=== PATIENT | male | born 1955 | race Caucasian/White ===

== ENCOUNTER 2017-08-02 21:23 | Inpatient (IN) | payer MEDICARE ==
[~2017-08-02 21:23] MED LIST: ISOVUE-370 76%-LOCM 1 ML ONE
[2017-08-02 22:02] LABS: #Eosinphils 0.3 thou/uL (0.0-0.7); #Monocytes 0.7 thou/uL (0.11-0.59); #Neutrophils 5.4 thou/uL (1.40-6.50); %Basophils 0.4 % (0.0-1.0); %Eosinophils 3.9 % (0.0-10.0); %Lymphocytes 23.6 % (21.0-51.0); %Monocytes 7.9 % (0.0-10.0); Red Blood Cell (RBC) Count 4.22 mill/uL (4.70-6.10); White Blood Cell (WBC) Count 8.4 thou/uL (4.8-10.8)
[2017-08-02 22:06] LABS: Prothrombin Time 15.5 SEC (12.0-14.7)
[2017-08-02 22:07] LABS: PTT 32.5 SEC (22.9-36.1)
[2017-08-02 22:20] LABS: ALT (SGPT) 53 U/L (8-55); AST (SGOT) 112 U/L (5-34); Alkaline Phosphatase 245 U/L (40-150); Anion Gap 13 mmol/L (10-20); BUN (Urea Nitrogen) 26 mg/dL (8.4-25.7); Bilirubin, Total 0.5 mg/dL (0.2-1.2); Calc. Creatinine Clearance 0 mL/min (70-130); Carbon Dioxide 24 mmol/L (23-31); Chloride 103 mmol/L (98-107); Estimated GFR-MDRD 34; Globulin 4.9 g/dL (2.4-3.5); Protein, Total 8.3 g/dL (5.8-8.1)
[2017-08-02 22:25] LABS: Troponin I Less than 0.010 ng/mL (< 0.028)
--- NOTE | 2017-08-02 23:39 | RAD ---
AP VIEW CHEST 08/02/17 HISTORY: Swelling, dyspnea. AP portable view chest obtained on 08/02/17. COMPARISON: Comparison made to previous exam from 09/28/16. AP view chest demonstrates what appears to be areas of soft tissue density over the right upper lobe . These appear to be several lesions in a linear fashion over the right upper lobe. I cannot determi ne whether these are external to the patient or have developed in the interim in the right upper lob e region. It may be worthwhile to consider repeat chest radiograph in the PA and lateral projections as well as confirming that there are no external lesions to the patient which would give this appea denisa. IMPRESSION: 1. Possible right upper lobe densities versus foreign bodies adjacent to the right upper lobe a nd right upper chest region. 2. Interval development of a small left sided pleural effusion. POS: [facility]
--- NOTE | 2017-08-03 00:28 | CT ---
CONTRAST ENHANCED CT IMAGES OF ABDOMEN AND PELVIS: Oral contrast was not given. HISTORY: Hepatitis C with abdominal pain and lower extremity edema. Contrast-enhanced CT images of the abdomen and pelvis demonstrate two soft tissue lesions seen in th e right lower lobe. The largest diameter measuring 12.3 mm. This may represent a right lower lobe mass including metastatic disease. A small amount of ascites is seen. The liver is heterogeneous with area of hyperdensity concerning for a possible hepatic mass. This h as a diameter of approximately 3.8 cm. Additional areas of heterogeneity also seen in the posterior aspect of the right hepatic lobe concerning for possible metastatic lesions. The spleen is unremar kable. The inferior vena cava is heterogeneous concerning for extensive IVC clot. This appears to extend i nto the anterior aspect of the lower inferior vena cava. Some of this also may be due to inflow and heterogeneity as far as mixing of the returning inferior vena cava blood. Adrenal gland and kidney s are unremarkable. There is an enlarged celiac lymph node, diameter measuring approximately 16.6 x 13.6 mm. Multilevel lumbar degenerative changes seen. Old healed pelvic fracture is seen. IMPRESSION: 1. Right lower lobe pulmonary parenchymal lesion concerning for possible metastatic disease or lung mass. 2. Hyperdense area as well as hypodense areas seen in the liver concerning for metastatic disease. Other possibilities could include a mixture of metastatic disease and primary hepatic neoplasm. 3. Ascites. 4. 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 5. Enlarged celiac lymph node. POS: [facility]
[2017-08-03] MEDS ORDERED: Acetaminophen 325 MG TAB PO PRN (02:29)
[2017-08-03] MEDS ORDERED: Ondansetron HCl/PF 4 MG/2 ML Vial IVP PRN (02:29)
[2017-08-03] MEDS ORDERED: Ondansetron ODT 4 MG TAB SL PRN (02:29)
[2017-08-03] MEDS ORDERED: Sodium Chloride 0.9% 1,000 ML IV SCH (02:30)
[2017-08-03] MEDS: Sodium Chloride 0.9% 1,000 ML IV SCH ×2 (02:56→20:04)
[2017-08-03 03:01] VITALS: BMI 25.8
[2017-08-03 03:46] LABS: #Basophils 0.1 thou/uL (0.0-0.2); #Eosinphils 0.2 thou/uL (0.0-0.7); #Lymphocytes 1.5 thou/uL (1.20-3.40); #Monocytes 0.6 thou/uL (0.11-0.59); #Neutrophils 4.2 thou/uL (1.40-6.50); %Basophils 0.9 % (0.0-1.0); %Eosinophils 3.3 % (0.0-10.0); %Lymphocytes 23.7 % (21.0-51.0); %Monocytes 8.6 % (0.0-10.0); Hematocrit 33.2 % (42.0-52.0); Red Blood Cell (RBC) Count 3.74 mill/uL (4.70-6.10); White Blood Cell (WBC) Count 6.5 thou/uL (4.8-10.8)
--- NOTE | 2017-08-03 04:03 | HP ---
PRIMARY CARE PROVIDER: ANNIE Bethea. CHIEF COMPLAINT: Leg swelling. HISTORY OF PRESENT ILLNESS: Mr. Lugo is a pleasant 62-year-old gentleman who was seen at [facility] on 08/03/2017. He has a history of hepatitis C for the last 30 years. He reports that over the last 2 weeks, he bermudez s had abdominal discomfort. He describes it as a sensation of bloating. He reports decreased appet ite. He does not think that he has lost weight. Over the last 2 days, he has noticed swelling of h is feet, subsequently legs. He therefore came to the emergency room. He reports shortness of breath with exertion. He denies any chest pain. He denies any fevers or ch ills. He denies any nausea or vomiting. REVIEW OF SYSTEMS: The following complete review of systems was negative, unless otherwise mentione d in the HPI or below: Constitutional: Weight loss or gain, sense of well-being, ability to conduct usual activities, exer cise tolerance. Skin/Breast: Rash, itching, changes in hair growth or loss, nail changes, breast lumps, tenderness, swelling, nipple discharge. Eyes: Vision, double vision, tearing, blind spots, pain. ENT/Mouth: Headaches (location, time of onset, duration, precipitating factors), vertigo, lighthead edness, injury. Vision, double vision, tearing, blind spots, pain, nose bleeding, colds, obstruction , discharge, dental difficulties, gingival bleeding, dentures, neck stiffness, pain, tenderness, mas ses in thyroid or other areas. Cardiovascular: Precordial pain, substernal distress, palpitations, syncope, dyspnea on exertion, o rthopnea, nocturnal paroxysmal dyspnea, edema, cyanosis, hypertension, heart murmurs, varicosities, phlebitis, claudication. Respiratory: Pain, shortness of breath, wheezing, stridor, cough, hemoptysis, fever or night sweats . Gastrointestinal: Poor appetite, dysphagia, indigestion, abdominal pain, heartburn, eructation, rubens sea, vomiting, hematemesis, jaundice, constipation, or diarrhea, abnormal stools (heather-colored, boogie y, bloody, greasy, foul smelling), flatulence, hemorrhoids, recent changes in bowel habits. Genitourinary: Urgency, frequency, dysuria, nocturia, hematuria, polyuria, oliguria, unusual (or ch donal in) color of urine, stones, hesitancy, change in size of stream, dribbling, acute retention or incontinence, libido, potency. Musculoskeletal: Pain, swelling, redness or heat of muscles or joints, limitation, of motion, muscu lar weakness, atrophy, cramps. Neurologic/Psychiatric: Convulsions, paralyses, tremor, incoordination, paresthesias, difficulties with memory of speech, sensory or motor disturbances, or muscular coordination (ataxia, tremor), emo tional problems, anxiety, depression, previous psychiatric care, unusual perceptions, hallucinations . Allergy/Immunologic: Skin rash, anemia, bleeding tendency, polydipsia, polyuria, intolerance to hea t or cold. PAST MEDICAL HISTORY: Significant for spinal injury, hepatitis B, hepatitis C. PAST SURGICAL HISTORY: Significant for right leg surgery, lower back surgery. PSYCHIATRIC HISTORY: Significant for depression. SOCIAL HISTORY: The patient denies alcohol use or recreational drug use. He smokes more than half a pack of cigarettes a day. FAMILY HISTORY: His mother from lung cancer. His maternal uncle from lung cancer. His f ather appears to have had a hematologic malignancy and at age 82. ALLERGIES: He has no known drug allergies. CURRENT MEDICATIONS: Include tramadol 50 mg as needed, Lyrica 200 mg 2 times a day, Celexa 20 mg da zuleika, milk thistle 1000 mg daily, tamsulosin 0.4 mg daily. PHYSICAL EXAMINATION: GENERAL: On examination, Mr. Lugo is awake and alert, not in acute distress. VITAL SIGNS: Blood pressure is 127/93, pulse is 82, he is breathing at rate of 18, and saturating 9 6% on room air. He is afebrile. EYES: No scleral icterus. No conjunctival pallor. ENT: Moist mucosal membranes, no oropharyngeal erythema or exudate. NECK: Supple, nontender, normal range of movement, trachea is midline. RESPIRATORY: Accessory muscles of breathing are not active. Chest wall movements are symmetric alejo aterally. LUNGS: Clear to auscultation without wheeze, rhonchi or crepitations. CARDIOVASCULAR: S1 and S2 are heard, regular. Peripheral pulses palpable. No carotid bruit, no pe ricardial rub. ABDOMEN: Distended, nontender, no hepatomegaly, no splenomegaly, bowel sounds heard, I could not ap preciate fluid thrill. NEUROLOGIC: Cranial nerves II through XII intact. Deep tendon reflexes are 2+. PSYCHIATRIC: Normal mood, normal affect, patient is oriented to person, place and time. SKIN: No rashes, patient has a tattoo over the right hand. MUSCULOSKELETAL: Power is 5/5 in all 4 extremities, normal range of movement at all major extremity joints. LYMPHATIC: No cervical lymphadenopathy. LABORATORY DATA AND IMAGING: Mr. Lugo's labs and investigations were reviewed. Laboratory investi gation show decreased sodium of 135, normal potassium, elevated creatinine of 2.01, last known creat inine normal at 0.90 on 06/03/2017, elevated AST of 112, normal ALT, elevated alkaline phosphatase a t 245, normal troponin I, elevated BNP of 165, elevated total protein of 8.3, normal white count, no rmocytic anemia with hemoglobin 12.3 and normal platelet count. INR is 1.2. I reviewed his electro cardiogram, which shows normal sinus rhythm, no ST changes to suggest an acute coronary syndrome. I also reviewed his chest x-ray, which shows right upper lobe densities. He also had a CT scan of th e abdomen and pelvis, which has been interpreted by the radiologist to show a right lower lobe pulmo nary parenchymal lesion, hyperdense as well as hypodense areas in liver concerning for metastatic di sease, ascites, inferior vena caval heterogeneity concerning for IVC clot and an enlarged celiac lym ph node. ASSESSMENT AND PLAN: Mr. Lugo is a pleasant 62-year-old gentleman who was seen at [facility]. His problem list includes: 1. Acute kidney injury: Etiology unclear at this time, could be secondary to hepatitis C or due to another process. We will initiate workup including renal ultrasound, cryoglobulin level, urine yessenia ctrolytes and urine creatinine. We will consult Nephrology Service. We will provide gentle hydrati on, since he also has ascites. 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 Assembler Fitter promotion specialist has bee n contacted by the emergency room physician and has advised against anticoagulation for now. 3. Malignancy: Patient's presentation is concerning for hepatocellular carcinoma with metastasis v ersus lung cancer with metastases. At this point in time, I am not ordering a CT scan of the chest because of his renal insufficiency and since he received intravenous contrast for today's CT scan. Once his kidney function improves, we will obtain CT scan with contrast of the chest. I will also c onsult Oncology to help guide further management. 4. Hyponatremia: Most likely secondary to lung disease. It is mild, likely asymptomatic. We will recheck sodium level. 5. Abnormal liver function test: Could be secondary to liver metastases. We will recheck liver fu nction test. 6. Hepatitis C and B infections: We will await Gastroenterology Service recommendations. 7. Tobacco abuse: Patient has been counseled regarding tobacco cessation. We will start him on ni cotine replacement therapy. Many thanks for allowing me to participate in your patient's care. Please feel free to contact me w ith any questions or concerns. LEVEL OF RISK: High. LEVEL OF COMPLEXITY: High.
[2017-08-03 04:06] LABS: Anion Gap 12 mmol/L (10-20); BUN (Urea Nitrogen) 28 mg/dL (8.4-25.7); Calc. Creatinine Clearance 45 mL/min (70-130); Calcium 8.5 mg/dL (7.8-10.44); Carbon Dioxide 23 mmol/L (23-31); Chloride 105 mmol/L (98-107); Estimated GFR-MDRD 35
[2017-08-03 06:20] LABS: Potassium, Urine 25.2 mmol/L
--- NOTE | 2017-08-03 08:11 | ULT ---
RENAL ULTRASOUND: History: Acute kidney insufficiency. FINDINGS: Right kidney measures 11 cm in length and the left kidney measures 10.5 cm. No hydronephrosis. No ma ss. Cortical echogenicity appears normally preserved. Cortical thinning appears normal. Bladder is d istended and appears unremarkable. IMPRESSION: Unremarkable renal ultrasound. POS: [facility]
[2017-08-03] MEDS ORDERED: FLU VACC QS2017-18 36 mo. & older 0.5 ML SYRINGE IM ONE (09:00)
[2017-08-03] MEDS: Pregabalin 50 MG CAP PO SCH ×2 (09:13→20:03)
[2017-08-03] MEDS: Tamsulosin HCl 0.4 MG CAP PO SCH (09:14)
[2017-08-03] MEDS: traMADol HCl 50 MG TAB PO SCH (09:14)
[2017-08-03] MEDS: MILK THISTLE 1000 MG PO SCH (09:15)
[2017-08-03] MEDS: Nicotine 21 MG PATCH TD SCH (09:17)
--- NOTE | 2017-08-03 11:38 | CON ---
DATE OF CONSULTATION: 08/03/2017 REASON FOR CONSULTATION: Elevated creatinine. HISTORY OF PRESENT ILLNESS: This is a very pleasant 62-year-old gentleman with a history of hepatit is C for the last 30 years, presented to the hospital with a 2 week history of abdominal discomfort, leg swelling. The patient has had no proteinuria. The patient's baseline creatinine was 0.9 in which increased to 2.0 yesterday and 1.9 today. The patient denies headache, numbness, tingli ng or weakness. Renal ultrasound did not show any swollen kidneys. PAST MEDICAL HISTORY: 1. Hepatitis C and hepatitis B. 2. Low back surgery. 3. Anemia. 4. Depression. FAMILY HISTORY: Significant for lung cancer. HOME MEDICATIONS: I did review home medications, list reviewed. ALLERGIES: Reviewed. REVIEW OF SYSTEMS: Fifteen point review of systems was performed and negative except positives note d above. GENERAL: Weakness- HEAD: Headache- NECK: No swelling or lumps. NOSE: No epistaxis or discharge. EYES: No diplopia or pain. RESPIRATORY: Dyspnea- CARDIOVASCULAR: Chest pain- GASTROINTESTINAL: Nausea- /LEARNING ENGINEER: Hematuria- MUSCULOSKELETAL: No joint pain. NEUROPSYCHIATIC SYSTEMS: No suicidal ideation. No ideation. SKIN: Denies any rash or ulcer. CONSTITUTIONAL: No fever or chills. PHYSICAL EXAMINATION: GENERAL: The patient is awake, alert. VITAL SIGNS: Afebrile, pulse 72, breathing at 16, blood pressure 129/89. OBJECTIVE: See above. Awake, alert, in no acute distress. GENERAL APPEARANCE AND MENTAL STATUS: Fair. HEAD/NECK: Normocephalic. Atraumatic. EYES: EOMI. No deformity. EARS: Clear. No ulcers. NOSE: Intact. No lesions. MOUTH: Clear. No discharge. THROAT: Clear. No exudate. LUNGS: Clear. No crackles. CARDIAC: S1, S2. No rub. ABDOMEN: Benign. BS+. GENITALIA/RECTUM: Krueger absent. BACK/EXTREMITIES: Lower extremities have 3+ edema. NEUROLOGICAL: Alert and motor intact. SKIN: Rash- Bruise- LYMPHATICS: Edema- Ulcer- LABORATORY: Creatinine 1.9. ASSESSMENT AND RECOMMENDATIONS: 1. Acute kidney injury with chronic kidney disease, most likely due to decreased effective arterial blood volume versus adrenal vein congestion. I will follow the patient's renal function closely an d agree with hydration. We will consider repeating MRI if indicated. 2. Anemia, stable. 3. Hepatic and pulmonary lesion, likely appears malignancy. 4. Medications based on GFR are appropriate.
--- NOTE | 2017-08-03 16:45 | CON ---
DATE OF CONSULTATION: 08/03/2017 HISTORY OF PRESENT ILLNESS: The patient is a 62-year-old male who was in normal state of health until a few weeks prior to admission when he developed some abdominal pain and bloating. He was having some right flank pain that radiated around to the anterior area. He had no nausea, vomit ing with this pain. He thought the pain may be from his lower back. He subsequently developed swel ling in his lower extremities and sought care in the emergency room. Abdominal and pelvic CT was pe rformed showing a right lower lobe parenchymal lesion concerning for possible metastatic disease, hy perdense area in the liver as well as heterogeneity of the entire right lobe of the liver concerning for neoplasm. He had small amount of ascites and inferior vena caval clot and a large celiac lymph nodes. Chest x-ray showed possible right upper lobe densities versus foreign body adjacent to the right upper lobe and right upper chest region, interval development of a small left pleural effusion . Renal ultrasound was performed and showed no abnormalities. PAST MEDICAL HISTORY: Includes, 1. Hepatitis C for 30 years, untreated. 2. Lower lumbar surgery. HOME MEDICATIONS: Include Celexa 20 mg p.o. at bedtime, milk thistle, Flomax 0.4 mg p.o. daily, tra madol 2 p.o. daily, and Lyrica 200 mg p.o. b.i.d. ALLERGIES: No known allergies. SOCIAL HISTORY: Does smoke. Does not drink alcohol for the last 4 years. FAMILY HISTORY: Negative for GI or liver disease. REVIEW OF SYSTEMS: CONSTITUTIONAL: No fever or chills, no weight loss. EYES: No blurred vision, no double vision. ENT: No sore throat or earaches. CARDIOVASCULAR: No chest pain or palpitations . PULMONARY: No shortness of breath, cough, or wheezing. SKIN: No rashes. GENITOURINARY: No he maturia or dysuria. MUSCULOSKELETAL: No joint pain. NEUROLOGIC: No seizure activity or numbness. PHYSICAL EXAMINATION: GENERAL: Shows well-developed, well-nourished white male in no acute distress. VITAL SIGNS: Temperature 98.3, pulse 83, respiratory rate 16, and blood pressure 122/78. HEENT: Significant for poor dentition. NECK: Supple. CHEST: Clear. CARDIOVASCULAR: Regular rate and rhythm. ABDOMEN: Soft with some upper abdominal fullness. No definitive hepatomegaly is appreciable. RECTAL: Deferred. EXTREMITIES: Show bilateral swelling of the upper and lower extremity. LABORATORY DATA: Shows sodium 135, BUN 26, creatinine 2.01, AST 112, alkaline phosphatase 245, tota l protein 8.3, albumin 3.4, alphafetoprotein of 50,413. PT is 15.5 with an INR of 1.2. CBC shows w raúl blood cell count of 6.5, hemoglobin 10.9, and hematocrit of 33.2. ASSESSMENT: 1. Hepatocellular carcinoma - the patient's CT shows a definitive mass in the right lobe of approxi mately 3 cm; however, most of the right lobe of the liver is heterogeneous and I think it is probabl y represents hepatocellular cancer. The patient also has pulmonary lesions and enlarged lymph nodes consistent with metastatic disease. Reviewing the CT, it also shows that it appears that there is tumor ingrowth into the inferior vena cava. Reviewing prognostic factors shows that he has a fairly poor prognosis. 2. Hepatitis C. 3. Inferior vena cava clot - I suspect some of this represents tumor ingrowth into the inferior faisal a cava. I would not anticoagulate him at this point. RECOMMENDATIONS: Oncology opinion.
--- NOTE | 2017-08-03 19:44 | CON ---
DATE OF CONSULTATION: 08/03/2017 REASON FOR CONSULTATION: Abdominal pain. HISTORY OF PRESENT ILLNESS: The patient is a 62-year-old gentleman who presented to the emergency room with complaints of abdominal discomfort and bloating, started approximately one month prior. He has had a decreased appetite, but no weight loss. He had new bilateral lower extremity swelling, so he presented to the emergency room. He had an abdominal and pelvis CT, which showed a 3.8 cm hepatic mass. There are also areas of heterogeneity seen throughout the right hepatic lobe. There were right lower lobe lesions concerning for metastatic disease. He also had ascites. There was inferior vena cava heterogeneity worrisome for an inferior vena cava clot. His creatinine was mildly elevated on admission. He had a normal bilirubin; however , his AST and ALT were elevated. He was admitted for further evaluation. Dr. Tucker has seen the patient. He was not started on anticoagulation until further workup could be done. He did have AFP drawn which was greater than 50,000, which was diagnostic for primary hepatocellular carcinoma. The patient had a history of untreated hepatitis C for greater than 30 years. We were asked to see the patient regarding treatment options. The patient denies any complaints. He is normally a very active individual. He denies any chest pain or shortness of breath. He admits to smoking half pack a day for over 40 years , but denies any recent hoarseness, or hemoptysis. PAST MEDICAL HISTORY: 1. Untreated hepatitis C. 2. Spinal injury. PAST SURGICAL HISTORY: Back surgery. ALLERGIES: No known drug allergies. HOME MEDICATIONS: 1. Tramadol 50 mg p.r.n. 2. Lyrica daily. 3. Celexa daily. 4. Milk thistle daily. 5. Flomax 0.4 mg daily. FAMILY HISTORY: His mother had lung cancer. She was a smoker. His father had hematological malignancy and in his 80s. SOCIAL HISTORY: , lives with his spouse. Denies any alcohol or illicit drug use. Admits to smoking half pack of cigarettes a day. REVIEW OF SYSTEMS: Constitutional: No fever, chills, night sweats, recent weight loss or gain. Eyes: No blurred or double vision. ENT: No pain, hoarseness, sore throat, or dysphagia. Cardiovascular: No chest pain, palpitations or syncope. Respiratory: No shortness breath, dyspnea on exertion or orthopnea. Gastrointestinal: No nausea, vomiting, diarrhea, constipation. Positive for abdominal pain and bloating. Genitourinary: No dysuria or hematuria. Musculoskeletal: Positive for back and lower extremity pain. Skin: No rash or pruritus. Hematologic: No bleeding, bruising or clotting. Neurologic: Denies weakness, headache, numbness, tingling or seizure activity. Psychiatric: No anxiety or depression. PHYSICAL EXAMINATION: VITAL SIGNS: Temperature is 98.3, pulse is 78, respiratory rate 16, blood pressure is 124/78. He is 95% on room air. GENERAL: Well-developed, well-nourished male in no acute distress. HEENT: Normocephalic, atraumatic. Pupils equal and reactive to light. He has poor dentition. NECK: Supple without JVD or masses. CARDIOVASCULAR: Regular rate and rhythm. LUNGS: Clear to auscultation. ABDOMEN: Firm and distended. His liver is palpable approximately 2 cm below the costophrenic angle. EXTREMITIES: He has 1+ bilateral lower extremity swelling. SKIN: There is no rash. HEMATOLOGIC: No petechia or purpura. NEUROLOGICAL: Nonfocal. PSYCHIATRIC: The patient is alert and oriented and appropriate. PERTINENT LABORATORY DATA AND X-RAYS: Current WBC is 6.5, hemoglobin 10.9, hematocrit 33.2, platelet count 140,000, 64% neutrophils, 24% lymphocytes. PT is 15.5, INR is 1.2, PTT 32.5. Sodium 139, potassium 4.5, chloride 105, CO2 is 23, BUN is 28, creatinine 1.92, calcium 8.5, total bilirubin is 0.5, AST is 112 , ALT is 53, alkaline phosphatase is 245. Troponin is negative. BNP is 165.8, serum total protein is 8.3, albumin 3.4, globulin 4.9. Tumor marker AFP is 50, 413. Radiology per HPI. IMPRESSION: 1. Hepatocellular carcinoma. 2. History of untreated hepatitis C. 3. Tobacco use. DISCUSSION: The patient has a primary hepatocellular carcinoma, likely from his untreated hepatitis C. The patient's liver function is good as is his performance status. He is a candidate for oral sorafenib. He understands that this is a metastatic disease and incurable. Goal would be to control symptoms and prolong life. Complete staging with a CT scan of his chest in the morning if his kidney function has improved. He is in no pain at this time. Per Dr. Meraz and Dr. Tucker's note they would avoid anticoagulation for the clot in his IVC, I agree as the risks do not outweigh the benefits. Case discussed with Dr. Phillips. Thank you for the consult. We will follow him closely. EDIS
[2017-08-03] MEDS ORDERED: Citalopram 20 MG TAB PO SCH (21:00)
[2017-08-04 03:58] LABS: #Eosinphils 0.2 thou/uL (0.0-0.7); #Lymphocytes 1.2 thou/uL (1.20-3.40); #Monocytes 0.5 thou/uL (0.11-0.59); #Neutrophils 3.2 thou/uL (1.40-6.50); %Eosinophils 4.6 % (0.0-10.0); %Lymphocytes 23.4 % (21.0-51.0); %Monocytes 9.9 % (0.0-10.0); Mean Platelet Volume 8.2 fL (7.4-10.4); Red Blood Cell (RBC) Count 3.69 mill/uL (4.70-6.10); White Blood Cell (WBC) Count 5.2 thou/uL (4.8-10.8)
[2017-08-04 04:17] LABS: Anion Gap 9 mmol/L (10-20); BUN (Urea Nitrogen) 28 mg/dL (8.4-25.7); Calc. Creatinine Clearance 55 mL/min (70-130); Calcium 8.6 mg/dL (7.8-10.44); Carbon Dioxide 26 mmol/L (23-31); Chloride 108 mmol/L (98-107); Estimated GFR-MDRD 44
[2017-08-04 04:18] LABS: ALT (SGPT) 40 U/L (8-55); AST (SGOT) 84 U/L (5-34); Alkaline Phosphatase 209 U/L (40-150); Bilirubin, Direct 0.2 mg/dL (0.1-0.3); Bilirubin, Total 0.3 mg/dL (0.2-1.2); Protein, Total 6.5 g/dL (5.8-8.1)
[2017-08-04] MEDS: Tamsulosin HCl 0.4 MG CAP PO SCH (08:29)
[2017-08-04] MEDS: traMADol HCl 50 MG TAB PO SCH (08:29)
[2017-08-04] MEDS: Nicotine 21 MG PATCH TD SCH (08:30)
[2017-08-04] MEDS: Pregabalin 50 MG CAP PO SCH (08:48)
--- NOTE | 2017-08-04 09:18 | PRG ---
DATE OF SERVICE: 08/04/2017 SUBJECTIVE: This is a 62-year-old gentleman being seen for acute kidney injury with improving creat inine. The patient denies any nausea, vomiting or chest pain. PHYSICAL EXAMINATION: GENERAL: Patient is awake, alert. VITAL SIGNS: Afebrile, pulse 80, breathing at 16, blood pressure 134/78. GENERAL APPEARANCE AND MENTAL STATUS: Fair. HEAD/NECK: Normocephalic. Atraumatic. EYES: EOMI. No deformity. EARS: Clear. No ulcers. NOSE: Intact. No lesions. MOUTH: Clear. No discharge. THROAT: Clear. No exudate. LUNGS: Clear. No crackles. CARDIAC: S1, S2. No rub. ABDOMEN: Benign. BS+. GENITALIA/RECTUM: Krueger absent. BACK/EXTREMITIES: Edema 0+ Ulcer- NEUROLOGICAL: Alert and motor intact. SKIN: Rash- Bruise- LYMPHATICS: Edema- Ulcer- LABORATORY DATA: Show hemoglobin 10.8, creatinine 1.5. PLAN: 1. Acute kidney injury, improved. 2. Hypertension, stable. 3. Anemia, stable. No indication for dialysis. Recommend low potassium diet and advised nonsteroi nyla antiinflammatory drugs.
[2017-08-04] MEDS: MILK THISTLE 1000 MG PO SCH (09:38)
--- NOTE | 2017-08-04 11:56 | PDOC.PN ---
- Subjective Encounter Start Date: 08/04/17 Encounter Start Time: 08:30 Pt seen and examined, chart reviewed in its entirety. Pt admitted for BLE edema, abd distention. Workup with CT showed IVC thrombosis and liver mass with probable IVC invasion. a-fetoprotein [id number] indiciatng primary liver HCC. Seen by GI - recommended no anticoagulation. Seen by Oncology - recommended po chemo if no other source. CT scan of chest was ordered for staging, not done at the time of my visit, but done at the time os this note. CT with 5 2+ cm RUL lesion, 1 2cm perihilar and a 3.8x5cm mediastinal mass. onc seeing patient now. Concerned hemay have a second primary malignancy No F/C, no N/V/D/c, no CP, no SOB. 10 point ROS performed and neg for all systems except as above - Objective Vital Signs & Weight: Vital Signs (12 hours) Temp Pulse Resp BP Pulse Ox 08/04/17 08:00 97.8 F 80 18 08/04/17 07:40 97.8 F 80 18 134/78 95 08/04/17 03:22 97.9 F 76 12 139/95 H 95 Weight Weight 180 lb I&O: 08/03/17 08/04/17 08/05/17 06:59 06:59 06:59 Intake Total 680 2400 Output Total 300 1500 Balance 380 900 Result Diagrams: 08/04/17 03:29 08/04/17 03:29 Dx/Plan - Plan * .
[2017-08-04] MEDS ORDERED: Boudreaux's Butt Paste 16% Oin 30 GM TUBE ONE (12:00)
[2017-08-04 12:32] VITALS: TEMP 97.9
[2017-08-04 12:33] VITALS: BP 139/84
--- NOTE | 2017-08-04 12:42 | DIS ---
DATE OF ADMISSION: 08/03/2017 DATE OF DISCHARGE: 08/04/2017 PRIMARY CARE PHYSICIAN: Brant Hammonds. ONCOLOGIST: Trey Phillips M.D. DISCHARGE DIAGNOSES: 1. Hepatocellular carcinoma. 2. Chronic hepatitis C. 3. Inferior vena cava acute thrombosis. 4. Acute kidney injury. 5. Hyponatremia. 6. Chronic tobacco abuse. 7. Lung metastasis. CONSULTATIONS: 1. Oncology, Ms. Jessica Cuba APRN for Dr. Phillips. 2. Gastroenterology, Dr. Arvin Tucker. 3. Nephrology, Dr. Priyank Ospina. PROCEDURES: Chest CT: Revealing multiple metastases to the right upper lobe, left perihilar region, and lymph n ode conglomeration. HISTORY AND PHYSICAL: Mr. Lugo is a pleasant 62-year-old gentleman recently admitted to the [facility] for radicular type right lateral abdominal pain. He was discharged home. Two months later, he developed increasing bilateral lower extremity edema and tightness to his abdom en. He presented back to the emergency department for evaluation where he was found to have a liver mass, inferior vena cava thrombosis, and acute kidney injury. The patient was admitted to the [facility]. HOSPITAL COURSE: The patient was seen and examined by Dr. Kelly, admitted to the hospital. Oncolog y was consulted for the new tumor, GI was consulted because for consideration for anticoagulation du e to proximity of the mass to the inferior vena cava, and renal was consulted for the acute kidney i njury. Oncology requested alpha fetoprotein which was elevated to 54,000, offered the patient a possibility of oral chemotherapy to slow down progression and prolong life, and was started as an outpatient en I saw him. CT scan was ordered for staging that was performed in the morning of 08/04. The patient was seen by Renal, on 08/03 and felt acute kidney injury due to adrenal vein congestion from his IVC blockage, with IV hydration, the creatinine improved overnight 08/03 to 08/04, but certainly not back to his b aseline yet. The patient was seen by GI, who recommended no anticoagulation due to proximity of the mass to the v paulina cava. The reasoning was that if he began to bleed, he would rapidly . Overall, the patient remained stable. Today, CT scan was done that showed five approximately 2 cm masses to the right upper lobe, one to t he left perihilar region, and a 3.8 x 5 cm mass at the mediastinum consistent with lymph node conglo meration. Discussed with Oncology and felt he was stable for discharge with outpatient followup to go over options. PHYSICAL EXAMINATION: The patient was seen and examined on the day of discharge. Discharge plan and disposition were disc ussed with the patient face to face at the bedside. DISCHARGE MEDICATIONS: Resume his home medications. The patient was possibly to be started on oral chemotherapy as an outpatient. HOME MEDICINES: 1. Celexa 20 mg p.o. at bedtime. 2. Milk thistle 1000 mg daily. 3. Lyrica 200 mg p.o. b.i.d. 4. Flomax 0.4 mg daily. 5. Ultram 50 mg tablets 2 p.o. daily. FOLLOWUP APPOINTMENTS: 1. Primary care physician with [facility] within a week. 2. Dr. Phillips on 08/10/2017 at 3:00 p.m. DISCHARGE CONDITION: Stable. DISPOSITION: The patient will be discharged home via private vehicle. INSTRUCTIONS: The patient was ordered to call primary doctor or return to the emergency department for any problems.
--- NOTE | 2017-08-04 12:46 | CT ---
CONTRAST ENHANCED CT IMAGES OF THE CHEST: HISTORY: Patient with hepatic mass. Evaluate for metastatic disease. TECHNIQUE: A contrast enhanced CT of the chest is performed. FINDINGS: The densities seen on the chest radiograph in the right upper lobe region do represent numerous righ t upper lobe soft tissue, popcorn-shaped metastatic lesions. Additional lesions are also seen in th e right lower lobe, as well as at the superior aspect of the left lower lobe, seen on image #21. There is a large right paratracheal mass, measuring 3.8 x 5.5 cm. Additional subcarinal lymphadenop athy is also seen. The patient has a large area of heterogeneous density in the liver. There is also a filling defect seen in the inferior vena cava. This is concerning for possible IVC tumor or clot. Small bilateral pleural effusions are seen. A small amount of ascites is also noted. IMPRESSION: 1. Numerous pulmonary parenchymal metastatic lesions. Right paratracheal and subcarinal lymphadeno janice, as well as heterogeneous mass in the liver, extending into the inferior vena cava. 2. An anterior pericardial metastatic lesion is also present. POS: [facility]
== END 2017-08-04 13:46 | disposition home or self-care (01) | DRG 435 ==
LOC: ERS 21:23 → ONC 08-03 01:15
PROVIDERS: ADMIT Internal Medicine; ATTEND Internal Medicine
DX: C22.0 Liver cell carcinoma (principal); I82.220 Acute embolism and thrombosis of inferior vena cava; N17.9 Acute kidney failure, unspecified; R18.8 Other ascites; E87.1 Hypo-osmolality and hyponatremia; C34.11 Malignant neoplasm of upper lobe, right bronchus or lung; D64.9 Anemia, unspecified; I12.9 Hypertensive chronic kidney disease with stage 1 through stage 4 chronic kidney disease, or unspecified chronic kidney disease; B18.2 Chronic viral hepatitis C; N18.9 Chronic kidney disease, unspecified; F17.210 Nicotine dependence, cigarettes, uncomplicated; F32.9 Major depressive disorder, single episode, unspecified
CPT/HCPCS: 36415; 71010; 71260; 74177; 76770; 80048; 80053; 80076; 82105; 82140; 82436; 82553; 82570; 82595; 83880; 84133; 84300; 84484; 85025; 85610; 85730; 90471; 90682; 90732; 93005; 94760; G0008; G0009; Q2036

== ENCOUNTER 2017-10-01 23:21 | Observation (INO) | payer MEDICARE ==
[2017-10-02 00:44] LABS: Acetaminophen Less than 6.0 mcg/mL (10.0-30.0); Alcohol Less than 10 mg/dL (Less than 10); Salicylate Less than 8.0 mg/dL (15.0-30.0)
[2017-10-02 00:45] LABS: ALT (SGPT) 30 U/L (8-55); AST (SGOT) 50 U/L (5-34); Albumin 3.5 g/dL (3.4-4.8); Alkaline Phosphatase 162 U/L (40-150); Anion Gap 11 mmol/L (10-20); BUN (Urea Nitrogen) 16 mg/dL (8.4-25.7); Bilirubin, Total 0.5 mg/dL (0.2-1.2); Calc. Creatinine Clearance 0 mL/min (70-130); Calcium 9.3 mg/dL (7.8-10.44); Carbon Dioxide 26 mmol/L (23-31); Chloride 103 mmol/L (98-107); Estimated GFR-MDRD 88; Glucose 101 mg/dL (80-115); Potassium 4.1 mmol/L (3.5-5.1); Protein, Total 7.5 g/dL (5.8-8.1); Sodium 136 mmol/L (136-145)
[2017-10-02 02:13] LABS: Bilirubin Negative (Negative); Blood, Urine Negative (Negative); Clarity CLEAR (Clear); Glucose, Urine (Dipstick) Negative (Negative); Leukocyte Negative (Negative); Nitrite Negative (Negative); Protein, Urine (Dipstick) Negative (Neg-Trace); Specific Gravity, Urine 1.019 (1.002-1.036)
[2017-10-02 02:22] LABS: Amphetamine Not Detected (NotDetected); Benzodiazepine Screen Detected (NotDetected); Cocaine Metabolite Screen Not Detected (NotDetected); Medtox Reader # READER 4; Methamphetamine Detected (NotDetected); Opiate Screen Detected (NotDetected); Phencyclidine (PCP) Not Detected (NotDetected); THC/Cannabinoid Screen Detected (NotDetected)
[2017-10-02 02:23] LABS: Barbiturates Screen Not Detected (NotDetected); Medtox Control Line Valid? VALID (VALID); Methadone Not Detected (NotDetected); Oxycodone Screen Not Detected (NotDetected); Tricyclic Screen Not Detected (NotDetected)
[2017-10-02] MEDS ORDERED: Sodium Chloride 0.9% 1,000 ML IV SCH (04:15)
[2017-10-02 04:47] VITALS: BMI 15.7
[2017-10-02] MEDS ORDERED: Ondansetron HCl/PF 4 MG/2 ML Vial IVP PRN (06:25)
[2017-10-02] MEDS ORDERED: Acetaminophen 325 MG TAB PO PRN (06:25)
--- NOTE | 2017-10-02 06:25 | PDOC.EVN ---
Event Note - Event Note Event Note: 750992 H&P Dictated 1. Altered mental status 2. Alcohol usage 3. Metastatic liver ca 4. Drug abuse plan: see orders
[2017-10-02] MEDS ORDERED: Lorazepam 2 MG/ML VIAL SLOW IVP PRN (06:28)
--- NOTE | 2017-10-02 07:24 | HP ---
DATE OF ADMISSION: 10/02/2017 CHIEF COMPLAINT: Altered mental status. HISTORY OF PRESENT ILLNESS: The patient is 62-year-old male with past medical history of metastatic liver carcinoma, hepatitis C, hepatitis B, spinal injury, was brought to the ER because of confusion. History obtained from the ED physician and from the ED note as the patient's family members are not available. The patient also unable to reach them. According to the records the patient was brought here because of confusion. The patient was found confused with a Lysol bottle in the hand, so the patient was brought to the ER. Upon ER arrival, the patient was confused, oriented to person, but later the patient started having agitation and confusion, so patient was given Ativan and admitted to the floor, patient is currently lethargic, so not able to give much history. PAST MEDICAL HISTORY: As per HPI. PAST SURGICAL HISTORY: Prior back surgery. FAMILY HISTORY: Unavailable as no family members are available at this time. SOCIAL HISTORY: Per history, no evidence of alcohol abuse, but per ED physician , the patient was positive for alcohol usage. Positive for smoking. MEDICATIONS: Unavailable at this time. There are no family members available. REVIEW OF SYSTEMS: Not available as the patient is currently lethargic. PHYSICAL EXAMINATION: CONSTITUTIONAL/VITAL SIGNS: At the time of H&P performed temperature 97.3, heart rate 97, respiration 16, blood pressure 150/90. GENERAL: The patient is lethargic, but arousable. HEENT: ENT patent. Oral cavity, poor dentition. NECK: Supple, no JVD. CARDIOVASCULAR: S1, S2 present. Regular rate and rhythm. RESPIRATORY: Diminished breath sounds bilateral. No wheezing, no rhonchi. Breath sounds bilaterally. ABDOMEN: Soft, nontender, no guarding, no organomegaly. MUSCULOSKELETAL: No edema. CRANIAL NERVE SYSTEM: Sleeping but arousable, not following much commands. PSYCHIATRIC: Mood calm. INTEGUMENTARY: Dry skin GENITOURINARY: No Krueger. LABORATORY DATA: At the time of H&P performed; drug screen positive for methamphetamines, benzodiazepines and cannabinoids. BMP showed sodium 136, potassium 4.1, chloride 103, CO2 26, BUN of 16, creatinine 0.87. AST 50, ALT 30 , alkaline phosphatase 162. Serum ammonia level 16, globulin 4. ASSESSMENT AND PLAN: The patient is a 62-year-old male. 1. Altered mental status, possible drug intoxicated, due to drug abuse. Plan to monitor the patient closely. CT head was done, the official report is pending, but no bleed seen. We will go ahead and consult Neuro to evaluate the patient and we will follow the patient. 2. Metastatic liver carcinoma. Monitor closely. Continue current treatment. The patient was seen by Dr. Phillips in the past, but currently he is switching physicians. We will consult Oncology if needed. 3. Pain. P.r.n. pain meds. Monitor his status closely. 4. History of IVC thrombosis. We will go ahead and start patient on Lovenox 40 mg subcu daily. We will monitor the patient closely. We will continue home dose once further records available. 5. Possible alcohol usage. Plan to give thiamine and folic acid and p.r.n. Ativan also. The case was discussed in detail with the patient and the nurse also. MTDD
[2017-10-02] MEDS ORDERED: Multivitamins, Adult 10 ML, Folic Acid 1 MG, Thiamine HCl 100 MG in Dextrose 5 %-0.45 %... IV SCH ×4 (08:00)
--- NOTE | 2017-10-02 08:51 | CT ---
PRELIMINARY REPORT/[facility]/EMERGENCY AFTER HOURS PROCEDURE: EXAM: CT Head Without Intravenous Contrast CLINICAL HISTORY: 62 years old, male; Signs and symptoms; Altered mental status/memory loss; Confusion or disorientatio n; Patient HX: AMS TECHNIQUE: Axial computed tomography images of the head/brain without intravenous contrast. COMPARISON: No relevant prior studies available. FINDINGS: Brain: No acute findings. No hemorrhage. No significant white matter disease. No edema. Ventricles: No acute findings. No ventriculomegaly. Bones/joints: No acute findings. No acute fracture. Soft tissues: No acute findings. Sinuses: Unremarkable as visualized. No acute sinusitis. Mastoid air cells: Unremarkable as visualized. No mastoid effusion. IMPRESSION: No acute intracranial pathology. Thank you for allowing us to participate in the care of your patient. Dictated and Authenticated by: Cecy Lopez MD 10/02/2017 1:18 AM Central Time ([place] & [place]) FINAL REPORT CT BRAIN: Date: 10/02/17 HISTORY: Altered mental status. FINDINGS: Noncontrast enhanced CT images of brain obtained. The brain is unremarkable. No evidence of intracran ial masses, hemorrhages, strokes, or contusions seen. Ventricles are of normal size. IMPRESSION: Normal CT brain. I agree with the preliminary report given by Nate. POS: [facility]
--- NOTE | 2017-10-02 10:01 | PDOC.PN ---
- Subjective Encounter Start Date: 10/02/17 Encounter Start Time: 09:59 Subjective: alert, admits to THC, meth - Objective MAR Reviewed: Yes Vital Signs & Weight: Vital Signs (12 hours) Temp Pulse Resp Pulse Ox 10/02/17 04:10 97.3 F L 97 16 97 I&O: 10/01/17 10/02/17 10/03/17 06:59 06:59 06:59 Intake Total 350 Balance 350 Result Diagrams: 10/02/17 00:14 Additional Labs: Accuchecks 10/02/17 05:50 POC Glucose 97 Phys Exam - Physical Examination Constitutional: NAD Neck: no JVD Respiratory: clear to auscultation bilateral Cardiovascular: RRR, no significant murmur Gastrointestinal: soft, positive bowel sounds Musculoskeletal: no edema Dx/Plan (1) Mild tetrahydrocannabinol (THC) abuse Code(s): F12.10 - CANNABIS ABUSE, UNCOMPLICATED Status: Acute (2) Methamphetamine abuse Code(s): F15.10 - OTHER STIMULANT ABUSE, UNCOMPLICATED Status: Acute (3) Altered mental state Code(s): R41.82 - ALTERED MENTAL STATUS, UNSPECIFIED Status: Acute Qualifiers: Altered mental status type: unspecified Qualified Code(s): R41.82 - Altered mental status, unspecified (4) Acute thrombosis of inferior vena cava Code(s): I82.220 - ACUTE EMBOLISM AND THROMBOSIS OF INFERIOR VENA CAVA Status : Chronic (5) Chronic active hepatitis C Code(s): K73.2 - CHRONIC ACTIVE HEPATITIS, NOT ELSEWHERE CLASSIFIED Status: Chronic (6) Hepatocellular carcinoma Code(s): C22.0 - LIVER CELL CARCINOMA Status: Chronic (7) Lung metastasis Code(s): C78.00 - SECONDARY MALIGNANT NEOPLASM OF UNSPECIFIED LUNG Status: Chronic Qualifiers: Laterality: unspecified laterality Qualified Code(s): C78.00 - Secondary malignant neoplasm of unspecified lung - Plan AMS resolved, monitor , if no change to the worse- home * .
[2017-10-02] MEDS: Enoxaparin Sodium 40 MG/0.4 ML SYRINGE SC SCH ×2 (10:39→10:52)
[2017-10-02 16:33] VITALS: BP 126/82; TEMP 98.2
[2017-10-02] MEDS ORDERED: Tamsulosin HCl 0.4 MG CAP PO SCH (21:00)
[2017-10-02] MEDS ORDERED: Citalopram 20 MG TAB PO SCH (21:00)
--- NOTE | 2017-10-02 22:00 | DIS ---
DATE OF ADMISSION: 10/02/2017 DATE OF DISCHARGE: 10/02/2017 TRANSFER OF CARE NOTE DISCHARGE DISPOSITION: Home. FINAL DIAGNOSES: Altered mental status, resolved; THC abuse; methamphetamine abuse; chronic hepatiti s C; hepatic insufficiency; hepatocellular carcinoma. DISCHARGE MEDICATIONS: Same as his home medicines, tramadol 2 tablets daily, Flomax 0.4 mg a day, Ly mindi 200 mg twice a day, Celexa 20 mg at bedtime. ALLERGIES: No known drug allergies. PENDING AT THE TIME OF DISCHARGE: Nothing. CODE STATUS: FULL. HOSPITAL COURSE: The [facility] the [facility]. He was brought with altered mental status, no available histori ans. His drug screen was positive for opiates which he is not on, THC and benzodiazepines, which he is not on and methamphetamine. His chemistries were unremarkable except for an AST of 50, ALT of 30 and a total bilirubin of 0.5. His ammonia was actually low at 16. He is currently awake, alert, and desirous of going home, oriented x3 adequate knowledge. Vital signs are stable. Discussion of illi cit drugs was had. He is being discharged home. CONSULTATIONS: None. PROCEDURES: None. He has been asked to follow up with his PCP in 7 days.
== END 2017-10-02 18:10 | disposition home or self-care (01) ==
LOC: ERS 23:21 → SURG A 10-02 01:30
PROVIDERS: ADMIT Internal Medicine; ATTEND Internal Medicine
DX: R41.82 Altered mental status, unspecified (principal); F12.10 Cannabis abuse, uncomplicated; F15.10 Other stimulant abuse, uncomplicated; B18.2 Chronic viral hepatitis C; K72.90 Hepatic failure, unspecified without coma; C22.0 Liver cell carcinoma; R52 Pain, unspecified; I82.220 Acute embolism and thrombosis of inferior vena cava; C78.00 Secondary malignant neoplasm of unspecified lung; F17.200 Nicotine dependence, unspecified, uncomplicated; Z79.891 Long term (current) use of opiate analgesic; Z79.899 Other long term (current) drug therapy; Z98.890 Other specified postprocedural states; Z86.19 Personal history of other infectious and parasitic diseases
CPT/HCPCS: 70450; 80053; 80306; 80307; 81003; 82140; 82962; 84443; 96360; 96361 ×2; 96365; 96366; 99285; G0378; 36415; 36416; J1650; J3370; J3411; J7042

== ENCOUNTER 2018-01-05 21:07 | Emergency (ER) | payer MEDICARE ==
[2018-01-05 21:57] LABS: #Eosinphils 0.2 thou/uL (0.0-0.7); #Lymphocytes 1.3 thou/uL (1.20-3.40); #Monocytes 0.8 thou/uL (0.11-0.59); #Neutrophils 6.3 thou/uL (1.40-6.50); %Basophils 0.3 % (0.0-1.0); %Eosinophils 2.1 % (0.0-10.0); %Lymphocytes 15.5 % (21.0-51.0); %Monocytes 9.4 % (0.0-10.0); %Neutrophils 72.8 % (42.0-75.0); Hemoglobin 10.8 g/dL (14.0-18.0); Mean Corpuscular HGB CONC 32.8 g/dL (32.0-36.0); Mean Corpuscular Hemoglobin 29.8 pg (27.0-31.0); Mean Corpuscular Volume 90.7 fl (80.0-94.0); Mean Platelet Volume 7.7 fL (7.4-10.4); Platelet Count 230 thou/uL (130-400); RBC Distribution Width 16.3 % (11.5-14.5); Red Blood Cell (RBC) Count 3.64 mill/uL (4.70-6.10); White Blood Cell (WBC) Count 8.6 thou/uL (4.8-10.8)
[2018-01-05] MEDS ORDERED: Morphine 4 MG/ML VIAL ONE (21:59)
[2018-01-05] MEDS ORDERED: Ondansetron HCl/PF 4 MG/2 ML Vial ONE (21:59)
[2018-01-05] MEDS ORDERED: Loperamide HCl 2 MG CAP ONE ×2 (21:59→22:06)
[2018-01-05 22:03] LABS: INR-International Normal Ratio 1.2; PTT 33.1 SEC (22.9-36.1)
[2018-01-05 22:04] LABS: D-Dimer Test 2.54 *mcg/mL (0.27-0.43)
[2018-01-05 22:20] LABS: ALT (SGPT) 43 U/L (8-55); AST (SGOT) 110 U/L (5-34); Albumin 3.1 g/dL (3.4-4.8); Alkaline Phosphatase 322 U/L (40-150); Anion Gap 12 mmol/L (10-20); BUN (Urea Nitrogen) 26 mg/dL (8.4-25.7); Bilirubin, Total 0.7 mg/dL (0.2-1.2); Calc. Creatinine Clearance 0 mL/min (70-130); Calcium 8.7 mg/dL (7.8-10.44); Carbon Dioxide 26 mmol/L (23-31); Chloride 101 mmol/L (98-107); Estimated GFR-MDRD 45; Globulin 4.8 g/dL (2.4-3.5); Glucose 126 mg/dL (80-115); Lipase 22 U/L (8-78); Magnesium 2.3 mg/dL (1.6-2.6); Potassium 5.1 mmol/L (3.5-5.1); Protein, Total 7.9 g/dL (5.8-8.1); Sodium 134 mmol/L (136-145)
[2018-01-05 22:23] LABS: CKMB 0.9 ng/mL (0-6.6); Troponin I Less than 0.010 ng/mL (< 0.028)
--- NOTE | 2018-01-05 23:08 | CT ---
CTA OF THE THORAX UTILIZING IV CONTRAST AND 3D REFORMATTED IMAGIN01/05/18 COMPARISON: Prior exam dated 08/04/17. FINDINGS: No central or segmental pulmonary embolus is evident. There are enlarging pulmonary masses seen withi n both lungs. One of the largest is seen within the right lung apex measuring 4.1 cm on image 20 of s eries 2 whereas it measured 1.9 cm on prior exam. There is an enlarged right paratracheal lymph node that measures 6.3 x 4.4 cm where it previously measured 5.4 x 3.8 cm. There are enlarging pericardial lymph nodes. There is a large heterogeneous mass within the right hepatic lobe that extends into the right IVC seen on the comparison examination. This is better detailed on the subsequently performed CT abdomen and pelvis. Please see this dictation for further details. No definite acute osseous abnor mality is evident. IMPRESSION: 1. No central or segmental pulmonary embolus. 2. There is worsening metastatic disease to the lungs with worsening mediastinal lymphadenopathy as well as pericardial lymphadenopathy. 3. Large heterogeneous mass within the right hepatic lobe with tumor thrombus extending into the right IVC is stable to the comparison examination in 08/04/17. POS: [facility]
--- NOTE | 2018-01-05 23:29 | CT ---
CT OF THE ABDOMEN AND PELVIS WITH IV CONTRAST 01/05/18 INDICATION: History of diarrhea all day with burning sensation in the abdomen with history of liver cancer. COMPARISON: Prior exam dated 08/02/17. FINDINGS: There is worsening pulmonary metastatic disease. The large heterogeneous mass in the right hepatic lobe measures approximately 12.2 x 12.5 cm with inv asion of the right hepatic vein and extension into the IVC. The extent of the IVC tumor thrombus appe ars similar extending up to the level of the cavoatrial junction. The tumor essentially occludes the lumen of the IVC below the level of the liver. There is some opacification of the IVC from contrast f rom the renal veins. There is lack of contrast in the IVC below the level of the kidneys. There is enlarged paracaval lymph node measuring up to 4.3 cm where previously it measured 1.9 cm. Th ere are numerous enlarged lymph nodes within the upper abdomen consistent with metastatic lymphadenop athy. One of the larger lymph nodes is seen measuring 2.4 cm whereas it measured 1.4 cm on the prior exam in the peripancreatic region on image 28 of series 3. No free fluid is evident. There is some fluid density see within the colon which can be seen in diarrheal states. There is a n ormal appendix in the right lower quadrant. There is scattered degenerative and osteoarthritic martinez e. IMPRESSION: 1. Large heterogeneous mass with IVC extension causing thrombus within the IVC. The extent of th e thrombus appears slightly more pronounced than on the prior exam. 2. Worsening metastatic lymphadenopathy of the upper abdomen. 3. Worsening pulmonary metastatic disease. 4. Fluid density in the colon can be seen with diarrheal states. 5. Healed fracture deformity involving the pelvis. No acute osseous abnormality is evident. POS: [facility]
[2018-01-06] MEDS ORDERED: Furosemide 40 MG/4 ML VIAL ONE (01:26)
== END 2018-01-06 01:34 | disposition home or self-care (01) ==
LOC: ERS 21:07
DX: C22.0 Liver cell carcinoma (principal); C78.00 Secondary malignant neoplasm of unspecified lung; F32.9 Major depressive disorder, single episode, unspecified; F17.210 Nicotine dependence, cigarettes, uncomplicated; Z79.899 Other long term (current) drug therapy
CPT/HCPCS: 36415; 71275; 74177; 80053; 82553; 83690; 83735; 83880; 84484; 85025; 85379; 85610; 85730; 96374; 96375; 99406; J1940; J2270; J2405

== ENCOUNTER 2018-03-22 08:48 | Outpatient (CLI) | payer MEDICARE, OTHER ==
[2018-03-22] MEDS ORDERED: Iopamidol 370 76% 100 ML VIAL ONE (11:21)
--- NOTE | 2018-03-22 11:35 | CT ---
CT OF CHEST AND ABDOMEN AND PELVIS PERFORMED WITH INTRAVENOUS CONTRAST ENHANCEMENT: HISTORY: Hepatocellular carcinoma with metastases. COMPARISON: A CT angio of the chest performed 01/05/[address] of the abdomen and pelvis also performed 01/05/18. FINDINGS: Multiple right upper lobe pulmonary masses are identified. The lesion which is in the apex of the david ng has decreased in size measuring 2.1 cm on the current study as compared to 3.2 cm on the prior vladimir dy. A 2nd lesion, which is located more anteriorly as seen on axial image 12 measures 3.3 cm as comp ared to 3.7 cm on the prior exam and the 2 other lobulated densities seen on axial image 16 have also improved slightly in size measuring 2.2 cm and 2.9 cm on the current study as compared to 2.6 and 3. 2 cm on the prior exam. The massive right paratracheal adenopathy has also slightly diminished, alth ough the measurements are minimally different measuring 4.1 x 6.3 cm as compared to 4.4 x 6.4 cm. Th e enlarged node in the azygous region is not appreciably changes as seen on axial image 29 measuring 2.8 cm on the current study. Subcarinal adenopathy is also felt to not be significantly changed. There is a lobulated nodule seen in the superior segment of the left lower lobe. It is difficult to compare measurements, but abuts the fissure. It may be minimally improved as compared to the prior s tudy. It is difficult to obtain comparable measurements and there may be minimal improvement but not significant change. I do not see any new nodules. CT OF ABDOMEN PERFORMED WITH INTRAVENOUS CONTRAST ENHANCEMENT: The liver mass to near the cavoatrial junction. The spleen shows no focal lesions. Pancreas is unre markable. The gallbladder is not distended. Right and left adrenal glands are normal in appearance. Right and left kidneys are normal in size an d not obstructed. The upper abdominal adenopathy is similar. A peripancreatic node located posterio r to the body of the pancreas on image 25 has short axis measurement at 2.5 cm, which is similar to t he previous exam and the large mass, which is located posterior to the IVC, measures approximately 4. 9 as compared 4.3 cm in dimension but on coronal images I do not appreciate any true interval change. CT OF PELVIS PERFORMED WITH CONTRAST ENHANCEMENT: The bladder is not distended. There is a suggestion of bladder thickening. Deformity to the pelvis appears to be related to old trauma. No lytic or blastic bony changes seen. IMPRESSION: 1. Slight interval improvement to the size of some of the right upper lobe pulmonary nodules with li ttle significant change in the mediastinal adenopathy. The lobulated pulmonary nodule in the superio r segment of the left lower lobe is stable. 2. Unchanged size to the right lobe liver mass with inferior vena cava tumor invasion. Also, overal l stable appearance to the upper abdominal adenopathy. POS: [facility]
== END 2018-03-22 08:49 | disposition home or self-care (01) ==
LOC: CT 08:48
PROVIDERS: ATTEND Internal Medicine Hematology & Oncology
DX: C22.0 Liver cell carcinoma (principal); R91.8 Other nonspecific abnormal finding of lung field; R59.0 Localized enlarged lymph nodes; R16.0 Hepatomegaly, not elsewhere classified
CPT/HCPCS: 71260; 74177; 82565

== ENCOUNTER 2018-03-24 13:18 | Emergency (ER) | payer MEDICARE ==
[2018-03-24 14:10] LABS: #Eosinphils 0.1 thou/uL (0.0-0.7); #Monocytes 0.9 thou/uL (0.11-0.59); #Neutrophils 11.7 thou/uL (1.40-6.50); %Basophils 0.3 % (0.0-1.0); %Lymphocytes 7.4 % (21.0-51.0); %Monocytes 6.7 % (0.0-10.0); %Neutrophils 84.6 % (42.0-75.0); Mean Corpuscular HGB CONC 33.5 g/dL (32.0-36.0); Mean Corpuscular Hemoglobin 29.3 pg (27.0-31.0); Mean Corpuscular Volume 87.6 fl (80.0-94.0); Mean Platelet Volume 9.2 fL (7.4-10.4); Platelet Count 125 thou/uL (130-400); Red Blood Cell (RBC) Count 4.42 mill/uL (4.70-6.10); White Blood Cell (WBC) Count 13.8 thou/uL (4.8-10.8)
[2018-03-24 14:36] LABS: ALT (SGPT) 43 U/L (8-55); AST (SGOT) 92 U/L (5-34); Albumin 3.6 g/dL (3.4-4.8); Alkaline Phosphatase 260 U/L (40-150); Anion Gap 16 mmol/L (10-20); BUN (Urea Nitrogen) 23 mg/dL (8.4-25.7); Bilirubin, Total 0.6 mg/dL (0.2-1.2); Calc. Creatinine Clearance 0 mL/min (70-130); Carbon Dioxide 16 mmol/L (23-31); Chloride 104 mmol/L (98-107); Estimated GFR-MDRD 53; Glucose 109 mg/dL (80-115); Potassium 5.3 mmol/L (3.5-5.1); Protein, Total 8.6 g/dL (5.8-8.1); Sodium 131 mmol/L (136-145)
[2018-03-24 15:26] LABS: Bilirubin Negative (Negative); Blood, Urine Negative (Negative); Clarity CLEAR (Clear); Glucose, Urine (Dipstick) Negative (Negative); Leukocyte Negative (Negative); Nitrite Negative (Negative); Protein, Urine (Dipstick) Negative (Neg-Trace); Specific Gravity, Urine 1.016 (1.002-1.036); Urobilinogen 0.2 mg/dL (0.2-1.0); pH, Urine 5.5 (5.0-9.0)
== END 2018-03-24 16:21 | disposition home or self-care (01) ==
LOC: ERS 13:18
DX: R50.9 Fever, unspecified (principal); F32.9 Major depressive disorder, single episode, unspecified; F17.210 Nicotine dependence, cigarettes, uncomplicated; Z79.899 Other long term (current) drug therapy
CPT/HCPCS: 36415; 80053; 81003; 85025; 87040; 99283

== ENCOUNTER 2018-06-29 08:57 | Outpatient (CLI) | payer MEDICARE ==
--- NOTE | 2018-06-29 11:28 | CT ---
CONTRAST ENHANCED CT IMAGES OF CHST AND ABDOMEN AND PELVIS: HISTORY: Patient with a history of liver cancer with metastases to lung on chemotherapy. COMPARISON: Comparison is made to a previous CT from 03/22/18. FINDINGS: Contrast-enhanced CT images of the chest, abdomen, and pelvis were obtained. Images demonstrate extensive right upper lobe metastatic lesions. The largest of these right upper l obe metastatic lesions previously measured approximately 3.3 cm in its greatest dimension. This has not significantly changed since the previous exam. Other right upper lobe lesions are slightly small er while some are slightly larger. One in the anterior aspect of the right upper lobe previously paty sured approximately 2.2 cm and now measures approximately 2.6 cm suggesting slight increase in size. There is a large right paratracheal mass previously measuring approximately 4.1 x 6.3 cm and now mini morales changed in size measuring 4.0 x 6.5 cm. The right hilar lymph node is of same size measuring 2 .7 cm. Subcarinal lymphadenopathy is also present, unchanged in size. There is also a left lower lobe superior segment mass measuring 1.3 cm not significantly changed in s ize. Extensive right hepatic lobe and caudate lobe masses seen. These appear to not to have significantly changed in size. Portions of the liver appear to be somewhat nodular in appearance. The spleen is unremarkable. There is a large right retrocaval mass which appears to have increased in size. Previously, this les ion measured approximately 4.0 x 4.9 cm now having increased in size measuring 4.5 x 7.0 cm. There is also a moderate-sized retropancreatic mass measuring approximately 3.7 x 2.7 cm. This appea rs to have a separate tissue plane in the pancreatic body. This may also represent another enlarged lymph node. Anterior abdominal wall vascular collaterals are also present. The inferior vena cava appears to hav e some compression due to the retrocaval mass. Some mildly enlarged inguinal lymph nodes are also seen. IMPRESSION: Large right hepatic lobe mass with some right lung metastatic lesions minimally smaller while others are minimally larger. The retrocaval mass has significantly increased in size. No other significant interval change is seen. POS: [facility]
[2018-06-29] MEDS ORDERED: Iopamidol 370 76% 100 ML VIAL ONE (12:03)
== END 2018-06-29 08:58 | disposition home or self-care (01) ==
LOC: BICCT 08:57
PROVIDERS: ATTEND Internal Medicine Hematology & Oncology
DX: C22.0 Liver cell carcinoma (principal); C34.91 Malignant neoplasm of unspecified part of right bronchus or lung; R16.0 Hepatomegaly, not elsewhere classified; N28.89 Other specified disorders of kidney and ureter
CPT/HCPCS: 71260; 74177

== ENCOUNTER 2018-09-13 08:48 | Outpatient (CLI) | payer MEDICARE ==
[2018-09-13] MEDS ORDERED: ISOVUE-370 76%-LOCM 1 ML ONE (10:48)
--- NOTE | 2018-09-13 11:28 | CT ---
CHEST CT WITH CONTRAST ABDOMEN CT WITH CONTRAST PELVIS CT WITH CONTRAST: Date: 09/13/18 HISTORY: Liver cell cancer, hepatoma. Lung metastasis. Increasing pain since last scan. Patient is currently u ndergoing chemotherapy. COMPARISON: 03/12/18, 06/29/18. FINDINGS: CHEST CT: Redemonstration of extensive metastases involving the lung parenchyma, as well as the mediastinum. Th ere is an enlarged metastatic deposit, right paratracheal in location, currently measuring 3.9 x 6.6 cm (previously measuring 6.5 x 4.0 cm). Enlarged right hilar lymph node/mass measuring 2.9 x 3.2 cm (previously measuring 2.7 x 3.2 cm. Multiple lung parenchymal nodules. The overall degree and distrib ution has not changed. The largest nodule in the left lung abuts the major fissure and measures 1.5 c m (previously measuring 1.3 cm). Largest nodule in the right lung is at the apex, measuring 3.3 x 3.1 cm (previously measuring 3.3 x 3.1 cm). ABDOMEN CT: There is extensive malignancy involving the liver. There is a hyperdense focus in the anterior segmen t of the right hepatic lobe measuring 4.8 x 4.4 cm (previously measuring 4.1 x 4.3 cm). Irregularity of the caudate lobe of the liver is also noted. Left hepatic lobe is unremarkable. There is tumor thr ombus extending into the inferior vena cava down to the level of the renal veins. There is no evidenc e of extension of thrombus into the right renal vein. There is a small extension of tumor thrombus in the left renal vein. The spleen, pancreas, and adrenal glands are unremarkable. There is an enlarged retroperitoneal lymph node adjacent to the tail and body of the pancreas measuri ng 2.7 x 4.4 cm (previously measuring 2.4 x 3.6 cm). There is a bulky lymph node posterior to the inf erior vena cava measuring 5.5 x 5.6 cm (previously measuring 5.5 x 4.3 cm). Symmetric enhancement of the kidneys. No evidence of abnormality with regards to the alimentary canal. Extensive varicosities are noted in the anterior and lateral abdominal wall. Symmetric attenuation of the psoas muscles. CT PELVIS: No mass, lymphadenopathy, free air, or free fluid. No lytic or blastic lesions in the osseous structures. IMPRESSION: 1. Redemonstration of multifocal metastatic deposits involving the thorax and abdomen as described a selina. The majority of these lesions are unchanged. There is a lesion in the left lung has increased i n size. 2. Involvement of the liver and abdominal lymphadenopathy is relatively stable. There may be slight progression in terms of the size of the lymph node posterior to the inferior vena cava. 3. Stable involvement of the liver by primary tumor as described above. POS: [facility]
== END 2018-09-13 08:49 | disposition home or self-care (01) ==
LOC: BICCT 08:48
PROVIDERS: ATTEND Internal Medicine Hematology & Oncology
DX: C22.0 Liver cell carcinoma (principal); R59.0 Localized enlarged lymph nodes; R91.1 Solitary pulmonary nodule
CPT/HCPCS: 71260; 74177; 82565

== ENCOUNTER 2019-03-11 09:23 | Outpatient (CLI) | payer MEDICARE ==
--- NOTE | 2019-03-11 10:29 | CT ---
EXAM: CT of the chest with contrast CT of the abdomen and pelvis with contrast HISTORY: Liver cancer with lung metastases COMPARISON: 09/13/2018 TECHNIQUE: 1. Multiple contiguous axial images were obtained in a CT the chest with contrast. Coronal reformats were performed. 2. Multiple contiguous axial images were obtained and a CT of the abdomen and pelvis with contrast. C oronal reformats were performed. FINDINGS: CT CHEST: HEART: Normal in size without focal cardiac abnormality MEDIASTINUM: There are worsening enlarged mediastinal and hilar lymph nodes. The largest node is seen in the superior mediastinum measuring 7.6 cm in size. LUNGS: Multiple nodules are seen in the right upper lobe. Majority of these nodules have slightly inc reased in size with the largest nodule measuring 3.4 cm in size. However, one of the nodules has slightly decreased in size. There is a nodule in the left lower lobe which has significantly decrease d in size on image 22 of 61 and now measuring approximately 6 mm in size. A new pulmonary nodule is seen in the right lower lobe on image 35 of 61 measuring 6 mm in size. PLEURAL SPACE: No pneumothorax or pleural effusion. CHEST WALL SOFT TISSUES: Multiple varices seen in the chest and abdominal wall CT ABDOMEN/PELVIS: ABDOMEN: LIVER: There is a large mass occupying majority of the right lobe of the liver. This involves the inf erior vena cava and likely as a cause for the varices seen in the abdominal wall. The previously seen hyperdense focus now measures 5.4 cm in size but there is heterogeneous appearance of the rest o f the right lobe of the liver. BILE DUCTS: Normal caliber. GALLBLADDER: No calcified gallstones. Normal caliber wall. PANCREAS: There is a mass along the posterior border of the pancreas measuring 5.2 cm in size, which has enlarged. SPLEEN: within normal limits. ADRENALS: within normal limits. KIDNEYS: within normal limits. PELVIS: REPRODUCTIVE ORGANS: No pelvic masses. URETERS: within normal limits. BLADDER: within normal limits. PERITONEUM: No ascites or free air, no fluid collection. BOWEL: Normal caliber. MESENTERY AND RETROPERITONEUM: An enlarging right retroperitoneal mass measures 8.5 cm in size. VESSELS: Atherosclerotic calcifications. ABDOMINAL WALL: Multiple varices OSSEOUS STRUCTURES: Remote healed pelvic fractures. Degenerative changes and postsurgical changes in the spine. No suspicious osseous lesions identified. IMPRESSION: Worsening of hepatic primary and metastatic disease in the chest and abdomen, although the response i s mixed.
[2019-03-11] MEDS ORDERED: ISOVUE-370 76%-LOCM 1 ML ONE (11:04)
== END 2019-03-11 09:24 | disposition home or self-care (01) ==
LOC: BICCT 09:23
PROVIDERS: ATTEND Internal Medicine Hematology & Oncology
DX: C78.00 Secondary malignant neoplasm of unspecified lung (principal); C22.0 Liver cell carcinoma; C79.89 Secondary malignant neoplasm of other specified sites
CPT/HCPCS: 71260; 74177; Q9966

== ENCOUNTER 2019-07-11 14:51 | Emergency (ER) | payer MEDICARE ==
[2019-07-11 16:10] LABS: #Lymphocytes 0.9 thou/uL (1.20-3.40); #Monocytes 0.4 thou/uL (0.11-0.59); #Neutrophils 3.8 thou/uL (1.40-6.50); %Basophils 0.5 % (0.0-1.0); %Eosinophils 0.9 % (0.0-10.0); %Lymphocytes 17.9 % (21.0-51.0); %Neutrophils 72.7 % (42.0-75.0); Hemoglobin 14.5 g/dL (14.0-18.0); Mean Corpuscular HGB CONC 33.9 g/dL (32.0-36.0); Mean Corpuscular Hemoglobin 29.1 pg (27.0-31.0); Mean Corpuscular Volume 85.7 fL (78.0-98.0); Mean Platelet Volume 10.3 fL (7.4-10.4); Platelet Count 106 thou/uL (130-400); RBC Distribution Width 18.2 % (11.5-14.5); Red Blood Cell (RBC) Count 4.99 mill/uL (4.70-6.10); White Blood Cell (WBC) Count 5.2 thou/uL (4.8-10.8)
[2019-07-11 16:19] LABS: MDiff Complete? YES; Platelet Morphology Comment Appears Decreased; Polychromasia SLIGHT = 2-3 cells (100X) (0-2/hpf)
[2019-07-11 16:20] LABS: ALT (SGPT) 64 U/L (8-55); AST (SGOT) 118 U/L (5-34); Albumin 2.8 g/dL (3.4-4.8); Alkaline Phosphatase 283 U/L (40-110); Anion Gap 9 mmol/L (10-20); BUN (Urea Nitrogen) 21 mg/dL (8.4-25.7); Calc. Creatinine Clearance 0 mL/min (70-130); Calcium 8.4 mg/dL (7.8-10.44); Carbon Dioxide 26 mmol/L (23-31); Chloride 102 mmol/L (98-107); Estimated GFR-MDRD 77; Globulin 5.2 g/dL (2.4-3.5); Glucose 121 mg/dL (80-115); Lipase 32 U/L (8-78); Potassium 4.2 mmol/L (3.5-5.1); Sodium 133 mmol/L (136-145)
--- NOTE | 2019-07-11 16:26 | RAD ---
EXAM: CHEST ONE VIEW HISTORY: Altered mental status COMPARISON: 08/02/2017 FINDINGS: The cardiac silhouette and pulmonary vasculature is within normal limits. There are multiple pulmonar y nodules which now appear coalescent in the right upper lobe. There is a large right suprahilar/right paramediastinal mass which has enlarged when compared to the prior exam and is raul r visualized on CT thorax on 03/11/2019. Linear densities are seen at the right lung base which may be related to minimal scarring or atelectasis. The left lung appears clear. The osseous structures ar e intact. Vascular calcifications are seen in the thoracic aorta. No other interval change. IMPRESSION: Right upper lobe pulmonary nodules and right suprahilar/paramediastinal mass suggesting metastatic di sease which has increased from prior chest x-ray in 2017.
--- NOTE | 2019-07-11 16:43 | CT ---
EXAM: CT brain without contrast HISTORY: Altered mental status. History of cancer. COMPARISON: 10/02/2017 TECHNIQUE: Multiple contiguous axial images were obtained and a CT of the brain without contrast. FINDINGS: There are scattered hypodensities in the subcortical and periventricular white matter consi stent with small vessel ischemic disease. There is no evidence of hydrocephalus, intracranial hemorrhage, or extra-axial fluid collection. The calvarium and overlying soft tissues are unremarkable. The visualized paranasal sinuses and masto id air cells are well aerated. IMPRESSION: No evidence of acute intracranial abnormality
--- NOTE | 2019-07-13 09:54 | EKG ---
Test Reason : Blood Pressure : / mmHG Vent. Rate : 081 BPM Atrial Rate : 081 BPM P-R Int : 112 ms QRS Dur : 088 ms QT Int : 380 ms P-R-T Axes : 067 021 028 degrees QTc Int : 441 ms Normal sinus rhythm Normal ECG Confirmed by NATAN RHODES D.O. ([id number]), sound editor MARLON MONTERO ([id number] on 07/13/2019 9:53:30 AM Referred By: Confirmed By:NATAN RHODES D.O.
== END 2019-07-11 18:21 | disposition home or self-care (01) ==
LOC: ERS 14:51
DX: R41.82 Altered mental status, unspecified (principal); F32.9 Major depressive disorder, single episode, unspecified; F17.210 Nicotine dependence, cigarettes, uncomplicated; Z79.899 Other long term (current) drug therapy
CPT/HCPCS: 70450; 71045; 80053; 83690; 85025; 93005

== ENCOUNTER 2019-09-01 04:42 | Emergency (ER) | payer MEDICARE ==
[2019-09-01] MEDS ORDERED: Lorazepam 2 MG/ML VIAL ONE (06:07)
[2019-09-01] MEDS ORDERED: Morphine 4 MG/ML VIAL ONE (06:08)
== END 2019-09-01 08:28 | disposition hospice, inpatient (51) ==
LOC: ERS 04:42
DX: C22.9 Malignant neoplasm of liver, not specified as primary or secondary (principal); J96.91 Respiratory failure, unspecified with hypoxia; F32.9 Major depressive disorder, single episode, unspecified; F17.210 Nicotine dependence, cigarettes, uncomplicated; Z79.891 Long term (current) use of opiate analgesic; Z79.899 Other long term (current) drug therapy
CPT/HCPCS: 51702; 96361; 96374; 96375; J2060; J2270